=== PATIENT | female | born 1980 | race Two or more races ===

== ENCOUNTER → 2018-08-10 | Outpatient (CLI) | payer OTHER ==
[2018-08-10 09:49] LABS: UA SPECIFIC GRAVITY 1.015 (1.005-1.035); microscopic required? YES; urine erythrocyte 3+ (NEGATIVE)
[2018-08-10 09:54] LABS: BASOPHIL % 0.6 % (0-2); PLATELET COUNT 267 x10^3mcL (130-400); RED CELL DISTRIBUTION WIDTH 12.1 % (11.5-14.5)
[2018-08-10 10:23] LABS: ALBUMIN 3.9 g/dL (3.4-5.0); ALKALINE PHOSPHATASE 56 U/L (46-116); ALT/SGPT 22 U/L (14-59); AST/SGOT 15 U/L (15-37); BILIRUBIN TOTAL 0.6 mg/dL (0.20-1.00); CALCIUM 8.8 mg/dL (8.5-10.1); CARBON DIOXIDE 27.8 mmol/L (21-32); CHLORIDE SERUM 104 mmol/L (98-107); CHOLESTEROL 140 mg/dL (<200); CHOLESTEROL/HDL RATIO 2.5; CREATININE SERUM 0.8 mg/dL (0.6-1.0); GFR1 > 60 mL/min; GLUCOSE SERUM 93 mg/dL (74-106); HDL CHOLESTEROL 55 mg/dL (40-60); SODIUM SERUM 139 mmol/L (136-145); TOTAL PROTEIN, SERUM 7.5 g/dL (6.4-8.2); TRIGLYCERIDES 32 mg/dL (<150)
== END | disposition home or self-care (01) ==
LOC: LB 08:41
DX: R79.89 Other specified abnormal findings of blood chemistry (principal); E34.9 Endocrine disorder, unspecified; E78.5 Hyperlipidemia, unspecified; R76.0 Raised antibody titer; E55.9 Vitamin D deficiency, unspecified; N39.0 Urinary tract infection, site not specified; Z83.3 Family history of diabetes mellitus
CPT/HCPCS: 84402; 84403

== ENCOUNTER → 2018-09-17 | Outpatient (CLI) | payer OTHER | END | disposition home or self-care (01) | LOC: MA 10:54 | PROC: BH40ZZZ Ultrasonography of Right Breast (ICD-10-PCS; principal; 2018-09-17) | DX: N64.4 Mastodynia (principal); R07.81 Pleurodynia | CPT/HCPCS: 76641 ==

== ENCOUNTER → 2019-08-26 | Outpatient (CLI) | payer OTHER ==
[2019-08-26 08:30] LABS: BASOPHIL % 0.2 % (0-2); PLATELET COUNT 240 x10^3mcL (130-400); RED CELL DISTRIBUTION WIDTH 12.8 % (11.5-14.5)
[2019-08-26 08:58] LABS: ALBUMIN 3.8 g/dL (3.4-5.0); ALKALINE PHOSPHATASE 60 U/L (46-116); ALT/SGPT 22 U/L (14-59); AST/SGOT 14 U/L (15-37); BILIRUBIN TOTAL 0.96 mg/dL (0.20-1.00); CALCIUM 8.7 mg/dL (8.5-10.1); CARBON DIOXIDE 26.3 mmol/L (21-32); CHLORIDE SERUM 106 mmol/L (98-107); CHOLESTEROL 150 mg/dL (<200); CREATININE SERUM 0.8 mg/dL (0.6-1.0); GFR1 > 60 mL/min; GLUCOSE SERUM 88 mg/dL (74-106); POTASSIUM SERUM 4.5 mmol/L (3.5-5.1); SODIUM SERUM 139 mmol/L (136-145); TOTAL PROTEIN, SERUM 7.3 g/dL (6.4-8.2); TRIGLYCERIDES 32 mg/dL (<150)
[2019-08-26 09:07] LABS: CHOLESTEROL/HDL RATIO 2.4; HDL CHOLESTEROL 63 mg/dL (40-60)
== END | disposition home or self-care (01) ==
LOC: LB 08:02 → US 09:00
PROC: BW40ZZZ Ultrasonography of Abdomen (ICD-10-PCS; principal; 2019-08-26)
DX: R10.10 Upper abdominal pain, unspecified (principal)